=== PATIENT | female | born 1970 | race Caucasian/White ===

== ENCOUNTER 2019-01-20 16:28 | Emergency (ER) | payer OTHER ==
[~2019-01-20] VITALS: Ht 177.8 cm; Wt 86.2 kg
[2019-01-20 16:40] VITALS: BP_SYST 151
--- NOTE | 2019-01-20 18:10 | NUR ---
Patient to ER bed 03 to gown for evaluation. Side rails up.
--- NOTE | 2019-01-20 18:18 | NUR ---
pt was bib by her daughter for sharp lower back pain. Pt states that she been having lower back pain with numbess from her neck to her feet. Is unable to walk at the moment. Is currently sitting in a wheelchair.
--- NOTE | 2019-01-20 18:20 | NUR ---
ER at bedside examining patient.
--- NOTE | 2019-01-20 18:43 | NUR ---
assissted the pt to the restroom and back into bed. Pt was able to provide a urine sample at this time.
[2019-01-20] MEDS ORDERED: MORPHINE 2 MG/ML INJ. SYRINGE IVP ONE (18:45)
--- NOTE | 2019-01-20 18:49 | NUR ---
pt is off the floor going to Ct scan.
--- NOTE | 2019-01-20 19:10 | NUR ---
pt returned back from CT scan. Was about to administer Morphine to the pt when she stated that she does not like Morphine. Dr. Salazar made aware.
[2019-01-20] MEDS ORDERED: KETOROLAC TROMETHAMINE 60 MG/2 ML VIAL IM ONE (19:15)
--- NOTE | 2019-01-20 19:20 | NUR ---
Report given to Dami MONTIEL
--- NOTE | 2019-01-20 19:20 | NUR ---
Pt sitting in W/C with c/o lower back pain. Pt to be medicated.
[2019-01-20 21:05] VITALS: BP_SYST 145
--- NOTE | 2019-01-20 21:05 | NUR ---
Patient given written and verbal discharge instructions and verbalizes understanding. ER MD discussed with patient the results and treatment provided. Patient in stable condition. ID arm band removed. Rx of Motrin and Methocarbamol given. Patient educated on pain management and to follow up with PMD. Pain Scale 6/10. Opportunity for questions provided and answered. Medication side effect fact sheet provided.
== END 2019-01-20 21:05 | disposition home or self-care (01) ==
LOC: SED 16:28
DX: S39.012A Strain of muscle, fascia and tendon of lower back, initial encounter (principal); Z88.1 Allergy status to other antibiotic agents; X50.0XXA Overexertion from strenuous movement or load, initial encounter; Y93.89 Activity, other specified; Y92.89 Other specified places as the place of occurrence of the external cause; Y99.8 Other external cause status
CPT/HCPCS: 72131; 96372; 99284; J1885